=== PATIENT | female | born 1995 | race Caucasian/White ===

== ENCOUNTER 2022-06-10 11:35 | Inpatient (IN) | payer OTHER ==
[2022-06-18] MEDS ORDERED: Promethazine HCl 25 MG/ML VIAL IM PRN ×2 (00:36→10:29)
[2022-06-18] MEDS ORDERED: hydrALAZINE 20 MG/ML VIAL SLOW IVP PRN ×2 (00:36→21:30)
[2022-06-18] MEDS ORDERED: Misoprostol 100 MCG TAB VAG SCH (00:36)
[2022-06-18] MEDS ORDERED: HYDROcodone/Acetaminophen 5/325 mg Tablet PO PRN ×3 (00:36→21:30)
[2022-06-18] MEDS ORDERED: Penicillin G Potassium 5 MILL.UNITS in Sodium Chloride 0.9% 100 ML IVPB SCH (00:36)
[2022-06-18] MEDS ORDERED: Lidocaine 1% (PF) 30 ML VIAL SC PRN (00:36)
[2022-06-18] MEDS ORDERED: Butorphanol Tartrate 1 MG/ML VIAL SLOW IVP PRN (00:36)
[2022-06-18] MEDS ORDERED: Ibuprofen 800 MG TAB PO PRN (00:36)
[2022-06-18] MEDS ORDERED: NS w/ Oxytocin 30 units 500 ML IV SCH (00:36)
[2022-06-18] MEDS ORDERED: Ondansetron PF 4 MG/2 ML Vial IVP PRN ×3 (00:36→21:30)
[2022-06-18 00:47] VITALS: BMI 29.2
[2022-06-18 01:05] LABS: Hemoglobin 12.2 g/dL (12.0-15.5); Mean Corpuscular HGB CONC 34.9 g/dL (32.0-36.0); Mean Corpuscular Hemoglobin 31.5 pg (27.0-33.0); Mean Corpuscular Volume 90.4 fl (81.6-98.3); Mean Platelet Volume 12.9 fl (7.4-10.4); Platelet Count 169 10x3/uL (150-450); RBC Distribution Width 13.9 % (11.5-14.5); Red Blood Cell (RBC) Count 3.87 10x6/uL (3.90-5.03); White Blood Cell (WBC) Count 13.9 10x3/uL (3.5-10.5)
[2022-06-18 01:38] LABS: Syphilis Antibody Nonreactive (Nonreactive); Syphilis Antibody Index 0.03 S/CO (<1.00 Non-Reactive)
[2022-06-18 01:39] LABS: HBSAg Index 0.11 S/CO (0-0.99); Hep B Surf Ag Non-Reactive S/CO (NonReactive)
[2022-06-18 01:59] LABS: SARS-CoV-2 NAA Rapid Test Not Detected (NotDetected)
[2022-06-18] MEDS: Penicillin G 2.5 MILL.units 2.5 MILL.UNITS in Premix Bag 1 BAG IVPB SCH ×4 (05:13→17:26)
[2022-06-18] MEDS: Misoprostol 100 MCG TAB VAG SCH (05:34)
[2022-06-18] MEDS ORDERED: Bupivacaine/Epinephrine 0.25% 30 ML VIAL ONE (08:00)
[2022-06-18] MEDS ORDERED: Fentanyl 2 mcg/Bup 0.1% Cadd 100 ML ONE (09:19)
[2022-06-18] MEDS: Lactated Ringer's 1,000 ML IV SCH ×2 (10:16→17:29)
[2022-06-18] MEDS ORDERED: diphenhydrAMINE 50 MG/ML VIAL IVP PRN (10:29)
[2022-06-18] MEDS ORDERED: Moisturizing Cream (Eucerin) 113 GM JAR TOP PRN (10:29)
[2022-06-18] MEDS ORDERED: ePHEDrine Sulfate 50 MG/10 ML VIAL SLOW IVP PRN (10:29)
[2022-06-18] MEDS ORDERED: Naloxone HCl 0.4 mg/ml Vial IVP PRN ×2 (10:29)
[2022-06-18] MEDS ORDERED: Lactated Ringer's 500 ML IV PRN (10:29)
[2022-06-18] MEDS ORDERED: Acetaminophen 325 MG TAB PO PRN (10:29)
[2022-06-18] MEDS ORDERED: Fentanyl 2 mcg/Bupivacaine 0.1% Cassette 100 ML EPIDURAL SCH (10:30)
[2022-06-18] MEDS ORDERED: Communication Order-Pharmacy FS SCH (10:30)
[2022-06-18] MEDS ORDERED: Benzocaine-Menthol 82.5 ML CAN TOP PRN (21:30)
[2022-06-18] MEDS ORDERED: diphenhydrAMINE 25 MG CAP PO PRN (21:30)
[2022-06-18] MEDS ORDERED: Boostrix 0.5 ML (Tdap) VIAL (>/=7 yrs of age) IM ONE (21:30)
[2022-06-18] MEDS ORDERED: Milk Of Magnesia 30 ML UDCUP PO PRN (21:30)
[2022-06-18] MEDS ORDERED: Lanolin Ointment 7 GM TUBE TOP PRN (21:30)
[2022-06-18] MEDS ORDERED: Bisacodyl 10 MG SUPP PR PRN (21:30)
[2022-06-18] MEDS: Ibuprofen 800 MG TAB PO SCH (22:17)
[2022-06-18] MEDS: Docusate 100 MG CAP PO SCH (22:18)
[2022-06-19] MEDS: Misoprostol 100 MCG TAB VAG SCH ×2 (00:16→00:17)
[2022-06-19] MEDS: Penicillin G 2.5 MILL.units 2.5 MILL.UNITS in Premix Bag 1 BAG IVPB SCH (00:17)
[2022-06-19] MEDS: Lactated Ringer's 1,000 ML IV SCH (00:17)
[2022-06-19] MEDS: Ibuprofen 800 MG TAB PO SCH ×3 (05:45→21:03)
[2022-06-19] MEDS: Ferrous Sulfate 325 MG TAB PO SCH ×2 (08:19→14:35)
[2022-06-19] MEDS: Prenatal Vitamin 1 TAB PO SCH (08:20)
[2022-06-19] MEDS: Docusate 100 MG CAP PO SCH ×2 (08:20→21:03)
[2022-06-20] MEDS: Ibuprofen 800 MG TAB PO SCH ×3 (05:47→20:28)
[2022-06-20] MEDS: Ferrous Sulfate 325 MG TAB PO SCH ×2 (07:19→17:29)
[2022-06-20] MEDS: HYDROcodone/Acetaminophen 5/325 mg Tablet PO PRN ×2 (07:34→19:39)
[2022-06-20 07:47] VITALS: BP 119/69; TEMP 98.1
[2022-06-20] MEDS: Prenatal Vitamin 1 TAB PO SCH (08:34)
[2022-06-20] MEDS: Docusate 100 MG CAP PO SCH ×2 (08:34→22:10)
== END 2022-06-20 22:50 | disposition home or self-care (01) | DRG 807 ==
LOC: CSHLD 06-18 00:15 → CSHPP 06-18 21:20
PROVIDERS: ADMIT Obstetrics & Gynecology; ATTEND Obstetrics & Gynecology
PROC: 10E0XZZ Delivery of Products of Conception, External Approach (ICD-10-PCS; principal; 2022-06-19)
PROC: 0UQMXZZ Repair Vulva, External Approach (ICD-10-PCS; 2022-06-19)
PROC: 3E0334Z Introduction of Serum, Toxoid and Vaccine into Peripheral Vein, Percutaneous Approach (ICD-10-PCS; 2022-06-19)
DX: O48.0 Post-term pregnancy (principal); Z37.0 Single live birth; Z3A.41 41 weeks gestation of pregnancy; O70.0 First degree perineal laceration during delivery; Z20.822 Contact with and (suspected) exposure to COVID-19; O26.893 Other specified pregnancy related conditions, third trimester; Z67.41 Type O blood, Rh negative
CPT/HCPCS: 36415; 51702; 85027; 85461; 86780; 86850; 86900; 86901; 87340; 90384; 96372; J0595; J2540; J2590; J3490; J7120; U0002